=== PATIENT | male | born 1970 | race Caucasian/White ===

== ENCOUNTER 2017-04-30 12:38 | Day surgery (SDC) | payer OTHER ==
[2017-04-28 19:29] VITALS: BMI 28.7
[2017-04-30] MEDS ORDERED: oxyCODONE HCL 10 MG SUSTAINED ACTING TABLET PO STA (12:55)
[2017-04-30] MEDS ORDERED: MIDAZOLAM HCL 2 MG/2 ML SINGLE DOSE VIAL ONE ×2 (14:05→14:32)
[2017-04-30] MEDS ORDERED: ROCURONIUM BROMIDE 50 MG/5 ML VIAL ONE (14:05)
[2017-04-30] MEDS ORDERED: fentaNYL CITRATE 250 MCG/5 ML VIAL ONE (14:05)
[2017-04-30] MEDS ORDERED: LIDOCAINE 1%/EPI 1:100000 (20 ML MULTI DOSE VIAL) ONE (14:17)
--- NOTE | 2017-04-30 14:28 | HP ---
History & Physical Update - History History: No Change - Physical Physical: No Change - Assessment Assessment: No Change - Plan Plan: No Change (C4/5, C5/6, RUE weakness associated with cervical disc problems > 6 months)
[2017-04-30] MEDS ORDERED: PROPOFOL 20 ML ONE ×9 (14:36→15:54)
[2017-04-30] MEDS ORDERED: THROMBIN (BOVINE) 5,000 UNIT VIAL TP ONE ×2 (14:36→14:49)
[2017-04-30] MEDS ORDERED: KETAMINE HCL 200 MG/20 ML VIAL ONE (15:14)
[2017-04-30] MEDS ORDERED: HYDROmorphone HCL CARPU-JECT 1 MG/1 ML DISP.SYRIN ONE (16:46)
--- NOTE | 2017-04-30 16:46 | OP ---
Operative Note - Note: Operative Date: 04/30/17 Pre-Operative Diagnosis: Cervical stenosis with myelopathy Operation: ACDF C4-C6 Post-Operative Diagnosis: Same as Pre-op Surgeon: Serjio Pacheco Dental Billing Specialist: Ayaz Hung Anesthesiologist/COMMUNITY SERVICE AIDE: Varinder Schaeffer Anesthesia: General Specimens Removed: C4/5, C5/6 discs Estimated Blood Loss (mls): 25 Fluid Volume Replaced (mls): 1,200 Operative Report Dictated: Yes
[2017-04-30] MEDS ORDERED: ONDANSETRON 4 MG/2 ML VIAL ONE (16:47)
--- NOTE | 2017-04-30 16:47 | SURG ---
Surgery Occup Therapist Note Occup Therapist: Ayaz Hung PA-C Date of Service: 04/30/17 Diagnosis: Cervical stenosis, myelopathic Procedure: Anterior cervical discectomy, fusion, decompression, instrumentation C4/5, C5/6 with allograft implant x2, neuromonitoring I was present for the entirety of the operative procedure. For further detail, please refer to operative report. Visit type - Case Type Case Type: Scheduled Admission - New patient This patient is new to me today: Yes Date on this admission: 04/30/17
[2017-04-30] MEDS ORDERED: oxyCODONE HCL 5 MG TABLET PO PRN (16:48)
[2017-04-30] MEDS ORDERED: ONDANSETRON 4 MG/2 ML VIAL IVPUSH PRN ×2 (16:48→16:49)
[2017-04-30] MEDS: HYDROmorphone HCL CARPU-JECT 1 MG/1 ML DISP.SYRIN IVPUSH PRN ×7 (16:50→18:01)
[2017-04-30] MEDS ORDERED: LACTATED RINGERS SOLUTION 1,000 ML IV SCH ×2 (17:00)
[2017-04-30] MEDS ORDERED: ACETAMINOPHEN 1000 MG/100 ML VIAL (NON FORMULARY) IVPB ONE (17:03)
[2017-04-30] MEDS ORDERED: LORazepam 2 MG/ML SDV VIAL IVPUSH ONE ×2 (17:04→17:19)
[2017-04-30] MEDS ORDERED: LORazepam 2 MG/ML SDV VIAL ONE (17:05)
[2017-04-30] MEDS ORDERED: CEFAZOLIN 1 GM/D5W 50 ML IVPB SCH (18:00)
[2017-04-30] MEDS ORDERED: HYDROmorphone HCL CARPU-JECT 1 MG/1 ML DISP.SYRIN IVPUSH PRN (19:26)
[2017-04-30] MEDS: CEFAZOLIN 1 GM PUSH 1 GM/10 ML DISP.SYRIN IVPUSH SCH (19:38)
[2017-04-30] MEDS: oxyCODONE HCL 5 MG TABLET PO PRN (21:13)
[2017-04-30] MEDS ORDERED: ALPRAZolam 2 MG TABLET PO SCH (22:00)
[2017-04-30] MEDS ORDERED: traZODone HCL 50 MG TABLET (FP) PO SCH (22:00)
[2017-04-30] MEDS: diazePAM 5 MG TABLET PO PRN (23:15)
[2017-05-01] MEDS: CEFAZOLIN 1 GM PUSH 1 GM/10 ML DISP.SYRIN IVPUSH SCH (01:17)
[2017-05-01] MEDS: oxyCODONE HCL 5 MG TABLET PO PRN ×3 (01:28→09:43)
[2017-05-01 06:29] VITALS: BP 143/82; PULSE 74; TEMP 97.8
[2017-05-01] MEDS: diazePAM 5 MG TABLET PO PRN (08:05)
[2017-05-01] MEDS ORDERED: PATIENT'S OWN MEDICATION (NON-FORMULARY) (Zinc [Zinc] 50 MG) PO SCH (10:00)
[2017-05-01] MEDS ORDERED: amLODIPine BESYLATE 5 MG TABLET (FP) PO SCH (10:00)
[2017-05-01] MEDS ORDERED: LISINOPRIL 20 MG TABLET (FP) PO SCH (10:00)
[2017-05-01] MEDS ORDERED: CHOLECALCIFEROL (VITAMIN D3) 1,000 UNIT TABLET (FP) PO SCH (10:00)
[2017-05-01] MEDS ORDERED: LYSINE 1000 MG PO SCH (10:00)
--- NOTE | 2017-05-01 10:54 | DS ---
Physical Exam: SUBJECTIVE: Patient seen and examined this am no pain in his upper extremities, slight decrease in his right hand tingling. OBJECTIVE: Vital Signs Temperature 97.8 F 05/01/17 06:00 Pulse Rate 74 05/01/17 06:00 Respiratory Rate 18 05/01/17 08:20 Blood Pressure 143/82 05/01/17 06:00 O2 Sat by Pulse Oximetry (%) 100 05/01/17 08:20 PHYSICAL EXAM GENERAL: The patient is awake, alert, and fully oriented, in no acute distress. NECK: Trachea midline, supple. Dressing changed, inc c/d/i with steri-strips. No masses or evidence of bleeding. LUNGS: Breath sounds equal, clear to auscultation bilaterally, no wheezes, no crackles. HEART: Regular rate and rhythm. LE EXTREMITIES: 2+ pulses, warm, well-perfused, no edema. No calf tenderness or swelling noted b/l. NEUROLOGICAL: Normal speech, gait not observed. 5/5 flexion/extention of upper ext. Shoulder shrug intact b/l. retail worker strength equal b/l. PSYCH: Normal mood, normal affect. SKIN: Warm, dry.. 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 Now, s/p C4-C5/C5-C6 anterior cervical fusion. The day of surgery, the patient ambulated the hallways with assistance. Narcotic and non-narcotic pain management control was achieved with an oral and IV approach. An xray was obtained and confirmed hardware placement at C4-C5/C5- C6, no fractures or dislocations. Sana-operative IV ABX were administered. DVT prophylaxis was achieved with SCDs and early ambulation. The patient ambulated with Physical Therapy and no services were recommended upon discharge. Narcotic scripts and or muscle relaxants were checked with [facility] prior to escibe. The discharge instructions and an oral pain management plan were reviewed with the patient. All questions answered. Above plan discussed with Dr. Pacheco and agreed. Minutes to complete discharge: 20 <Michelle Rivas - Last Filed: 05/01/17 16:13> Physical Exam: SUBJECTIVE: Patient seen and examined OBJECTIVE: Vital Signs Temperature 97.8 F 05/01/17 06:00 Pulse Rate 74 05/01/17 06:00 Respiratory Rate 18 05/01/17 08:20 Blood Pressure 143/82 05/01/17 06:00 O2 Sat by Pulse Oximetry (%) 100 05/01/17 08:20 PHYSICAL EXAM GENERAL: The patient is awake, alert, and fully oriented, in no acute distress. HEAD: Normal with no signs of trauma. EYES: PERRL, extraocular movements intact, sclera anicteric, conjunctiva clear. ENT: Ears normal, nares patent, oropharynx clear without exudates, moist mucous membranes. NECK: Trachea midline, full range of motion, supple. LUNGS: Breath sounds equal, clear to auscultation bilaterally, no wheezes, no crackles, no accessory muscle use. HEART: Regular rate and rhythm, S1, S2 without murmur, rub or gallop. ABDOMEN: Soft, nontender, nondistended, normoactive bowel sounds, no guarding, no rebound, no hepatosplenomegaly, no masses. EXTREMITIES: 2+ pulses, warm, well-perfused, no edema. NEUROLOGICAL: Cranial nerves II through XII grossly intact. Normal speech, gait not observed. PSYCH: Normal mood, normal affect. SKIN: Warm, dry, normal turgor, no rashes or lesions noted. LABS HOSPITAL COURSE: Date of Admission:04/30/17 Date of Discharge: 05/02/17 The patient was admitted to the Med-Surg Unit after an elective repair of their C4-5, C5-6 ACDF. The day of surgery, the patient ambulated the hallways with assistance. Narcotic and non-narcotic pain management control was achieved with an oral and IV approach. POD #1, the surgical drain was removed fully intact and without incident. An xray was obtained and confirmed hardware placement at (level of ), no fractures or dislocations. Sana-operative IV ABX were administered. DVT prophylaxis was achieved with SCDs and early ambulation. The patient ambulated with Physical Therapy and no services were recommended upon discharge. Narcotic scripts and or muscle relaxants were checked with [place] [facility] prior to escibe. The discharge instructions and an oral pain management plan were reviewed with the patient. All questions answered. Above plan discussed with Dr. Pacheco and agreed. <Serjio Pacheco - Last Filed: 12/16/17 08:25> Visit type - Case Type Case Type: Scheduled Admission - Emergency Emergency Visit: No - New patient This patient is new to me today: Yes Date on this admission: 05/01/17 <Michelle Rivas - Last Filed: 05/01/17 16:13>
--- NOTE | 2017-05-01 11:34 | PN ---
Progress Note (short form) - Note Progress Note: 46M POD1 s/p ACDF under [facility]. PT states that pain responds to pain medication. Pt does not report any anesthetic complications. Neurologically at baseline.
--- NOTE | 2017-05-04 11:43 | PATH ---
Surgical Pathology Report Patient Name: WILLIS JOSE Med. Rec. #: [id number] /Age/Gender: 1970 (Age: 46) / M Account: [id number] Location: [facility] AMBULATORY Taken: 04/30/2017 Received: 04/30/2017 Reported: 05/04/2017 Physicians: Serjio Pacheco M.D. Specimen(s) Received C4-5, C5-6 DISC Clinical History Cervical stenosis Final Diagnosis INTERVERTEBRAL DISC, C4-5 AND C5-6, PARTIAL EXCISION: PORTIONS OF INTERVERTEBRAL DISC. Electronically Signed Beny Knowles M.D. Gross Description Received in formalin labeled "C4-5, C5-6 disc," is a 2.5 x 2.3 x 0.3 cm aggregate of gordon fragments of fibrocartilaginous tissue. 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 05/01/201705/01/2017
--- NOTE | 2017-05-25 21:52 | OP ---
DATE OF OPERATION: 04/30/2017 PREOPERATIVE DIAGNOSIS: Cervical stenosis, C4-5, C5-6. POSTOPERATIVE DIAGNOSIS: Cervical stenosis, C4-5, C5-6. PROCEDURE PERFORMED: 1. Anterior cervical diskectomy and fusion, C4-5. 2. Anterior cervical diskectomy and fusion, C5-6. 3. Placement of instrumentation, C4 through C7. SURGEON: Serjio Pacheco MD INSURANCE COUNSEL: MILTON Laws ESTIMATED BLOOD LOSS: 50 mL INTRAVENOUS FLUIDS: Per Anesthesia. COMPLICATIONS: None. DISPOSITION: Patient brought to the PACU in stable condition. INDICATION FOR SURGERY: The patient is a 46-year-old gentleman who has been suffering from significant pain and weakness in his right arm. X-rays and MRI were completed which noted that he had cervical stenosis. This all started after an accident. He had gone through an exhaustive course of treatment for this, including medications, physical therapy, as well as injections. Unfortunately, his pain continued to persist despite all this. At this point, risks, benefits, and alternatives were discussed, and the patient consented to surgery. DESCRIPTION OF PROCEDURE: Patient was brought to the operating room by anesthesia staff. After appropriate patient identification was performed, general anesthesia was given, and appropriate anesthetic lines were placed. SCDs were placed on the patient. Neuromonitoring leads were attached. His neck was extended to the point that he could tolerate in the preoperative holding area. A needle was taped onto his neck to denise off the C4-5 location. X-ray was taken to confirm this as correct. Needle was removed. Next, 10 mL of lidocaine with epinephrine was injected in his neck at this time. His neck was prepped and draped in a sterile manner. At this point, timeout was completed. An incision was made on the left side of his neck. Dissection was carried down to the platysma. The platysma was cut in line with the skin incision. Next, the interval between the sternocleidomastoid as well as strap muscles was developed. Next, the interval between the carotid sheath as well as tracheoesophagus was developed. Peanuts were used to elevate it off of the prevertebral fascia. A needle was placed into the C4-5 disk. An x-ray was taken to confirm this as correct. Needle was removed, and the longus coli muscles were elevated off. A [place] pin was placed into the body of C4 and C6. A knife was used to incise the disk, and distraction was applied. At this point, the microscope was brought in. Using a series of pituitaries, Kerrisons, and curettes, a diskectomy was completed at C4-5 and C5-6. Endplates were decorticated at this time. Cages filled with bone graft were placed in. The distraction was let go. A screw was placed into the body of C4, C5, and C6. [place] pin was removed. AP and lateral x-rays confirmed the instrumentation to be in good position. Final tightening was performed. The platysma was closed with 2-0 Vicryl suture. Skin was closed with 3-0 Monocryl suture. Dermabond was applied. Steri-Strips were applied. A sterile dressing was applied. Patient was placed supine on the OR bed, extubated in the OR, and brought to the PACU in stable condition. Pearl [id number]
== END 2017-05-01 11:50 | disposition home or self-care (01) ==
LOC: FASU 12:38 → FM/S 18:18 → FASU 05-01 11:50
PROVIDERS: ATTEND Orthopaedic Surgery Orthopaedic Surgery of the Spine
PROC: 0RG10A0 Fusion of Cervical Vertebral Joint with Interbody Fusion Device, Anterior Approach, Anterior Column, Open Approach (ICD-10-PCS; 2017-04-30)
PROC: 0RG10K0 Fusion of Cervical Vertebral Joint with Nonautologous Tissue Substitute, Anterior Approach, Anterior Column, Open Approach (ICD-10-PCS; 2017-04-30)
PROC: 0RB30ZZ Excision of Cervical Vertebral Disc, Open Approach (ICD-10-PCS; principal; 2017-04-30 15:20)
DX: M48.02 Spinal stenosis, cervical region (principal)
CPT/HCPCS: 72050-TC; 88304-TC; 94010; 94760; 97116-GP; 97161-GP